=== PATIENT | female | born 1965 | race African-American/Black ===

== ENCOUNTER 2024-03-21 10:52 | Inpatient (IN) | payer MEDICAID ==
[~2024-03-21] VITALS: Ht 403.9 cm; Wt 136.1 kg
[~2024-03-21 10:52] MED LIST: PROC10TA65 PO; TOPUD PO
[2024-03-21 10:53] VITALS: O2SAT 92
[2024-03-21] MEDS: VANCOMYCIN 1G PREMIX 200 ML IV ONE (11:37)
[2024-03-21] MEDS: SODIUM CHLORIDE 0.9% (SEPSIS BOLUS) IV ONE (11:37)
[2024-03-21] MEDS: MORPHINE SULFATE 4 MG/ML INJ (FOR IV/IM USE) IV ONE (11:37)
[2024-03-21 12:06] LABS: CHLORIDE 108 mEq/L (98-107); HEMATOCRIT. 23.5 % (36.0-48.0); HEMOGLOBIN. 7.3 g/dL (12.0-16.0); MEAN CORPUSCULAR HEMOGLOBIN 29.5 pg (28.0-32.0); MEAN CORPUSCULAR HGB CONC 31.2 g/dL (31.0-37.0); MEAN CORPUSCULAR VOLUME 94.5 fL (81.0-99.0); MEAN PLATELET VOLUME 10.4 fl (7.4-10.4); PLATELET 120 x1000/uL (130-400); POTASSIUM 3.6 mEq/L (3.5-5.1); RED BLOOD CELL COUNT 2.49 mill/uL (4.2-5.4); RED CELL DISTRIBUTION WIDTH 20.6 % (11.6-14.6); SODIUM 141 mEq/L (136-145)
[2024-03-21 12:08] LABS: CALCIUM 9.7 mg/dL (8.7-10.4); CARBON DIOXIDE 21 mEq/L (21-32); DIFFERENTIAL COMMENT 1
[2024-03-21 12:12] LABS: INR 1.1
[2024-03-21 12:13] LABS: CREATININE 0.8 mg/dL (0.6-1.0); GLUCOSE 94 mg/dL (70-105); UREA NITROGEN BLOOD 32 mg/dL (9-23)
[2024-03-21 12:15] LABS: ALANINE AMINOTRANSFERASE 85 IU/L (10-49); ALBUMIN 2.7 g/dL (3.2-4.8); ASPARTATE AMINOTRANSFERASE 132 IU/L (<34)
[2024-03-21 12:16] LABS: PROTEIN TOTAL 6.4 g/dL (6.0-8.3)
[2024-03-21 12:35] LABS: LACTIC ACID 5.2 mmol/L (0.4-2.0)
[2024-03-21 12:38] LABS: TROPONIN I HIGH SENSITIVITY 65 ng/L (3.0-34)
[2024-03-21 13:15] LABS: ANISOCYTOSIS 2+; PLATELET ESTIMATE SLIGHTLY DECREASED
[2024-03-21] MEDS: HYDROMORPHONE HCL/PF 2MG/ML INJ IV ONE (13:33)
[2024-03-21] MEDS: MEROPENEM 1G/100ML 100 ML IV SCH (14:51)
[2024-03-21] MEDS: SODIUM CHLORIDE 0.9% 500 ML IV ONE (19:40)
[2024-03-21] MEDS ORDERED: MIDODRINE HCL 5MG TABLET PO SCH (20:30)
[2024-03-21] MEDS: MIDODRINE HCL 5MG TABLET PO SCH (21:02)
[2024-03-21] MEDS: NOREPINEPHRINE 8MG/250ML PMX 250 ML IV PRN (21:54)
[2024-03-21] MEDS: KETOROLAC 15MG/ML VIAL IV PRN (22:52)
[2024-03-21] MEDS: MEROPENEM 1G/100ML IV SCH (22:53)
[2024-03-22] VITALS (82 sets, daily range): BP systolic 76–138; BP diastolic 34–114; PULSE 50–84; RESP 11–23; TEMP 36.33624–37.05852; O2SAT 95–100
[2024-03-22] MEDS: VANCOMYCIN 1.25GM PMX (XELLIA) 250 ML IV NR (00:39)
[2024-03-22] MEDS: MORPHINE SULFATE 2 MG/ML INJ (NOT FOR IM USE) IV PRN (04:05)
[2024-03-22 06:25] LABS: CHLORIDE 107 mEq/L (98-107); SODIUM 139 mEq/L (136-145)
[2024-03-22 06:26] LABS: CARBON DIOXIDE 22 mEq/L (21-32)
[2024-03-22 06:31] LABS: CREATININE 0.8 mg/dL (0.6-1.0); GLUCOSE 94 mg/dL (70-105); UREA NITROGEN BLOOD 35 mg/dL (9-23)
[2024-03-22 07:24] LABS: HEMATOCRIT 21.7 % (36.0-48.0); MEAN CORPUSCULAR HEMOGLOBIN 30.2 pg (28.0-32.0); MEAN CORPUSCULAR VOLUME 94.2 fL (81.0-99.0); PLATELET 102 x1000/uL (130-400); RED BLOOD CELL COUNT 2.31 mill/uL (4.2-5.4); RED CELL DISTRIBUTION WIDTH 20.4 % (11.6-14.6); WHITE BLOOD COUNT 14.6 x1000/uL (4.5-11.0)
[2024-03-22] MEDS ORDERED: HYDROCODONE/ACETAMINOPHEN 10/325MG TABLET PO PRN (09:45)
[2024-03-22] MEDS: PANTOPRAZOLE SODIUM 40 MG/VIAL IV SCH (09:58)
[2024-03-22] MEDS: DEXT 5%/0.45% NACL 1000ML 1,000 ML IV SCH (11:07)
[2024-03-22] MEDS ORDERED: VANCOMYCIN 1GM/200ML PMX (BAXTER) IV SCH (12:00)
[2024-03-22 13:25] LABS: CLARITY URINE CLOUDY (CLEAR); COLOR URINE DARK YELLOW (YELLOW); GLUCOSE URINE NEGATIVE (NEGATIVE); KETONES URINE NEGATIVE (NEGATIVE); LEUKOCYTE ESTERASE URINE 1+ (NEGATIVE); NITRITE URINE POSITIVE (NEGATIVE); OCCULT BLOOD URINE NEGATIVE (NEGATIVE); PH URINE 5.5 (4.5-8.0); PROTEIN URINE 1+ (NEGATIVE); SPECIFIC GRAVITY URINE 1.024 (1.005-1.030)
[2024-03-22 13:54] LABS: BACTERIA URINE 3+; SQUAMOUS EPITHELIAL CELL URINE 1+ /lpf (RARE/1+)
[2024-03-22 13:56] LABS: RBC URINE 0-2 /hpf (0-2); WBC URINE 0-2 /hpf (0-2)
[2024-03-22] MEDS ORDERED: NALOXONE HCL 0.4MG/ML VIAL IV PRN (14:15)
[2024-03-22 16:25] LABS: IRON 52 ug/dL (50-170)
[2024-03-22 16:26] LABS: HEMOGLOBIN 7.8 g/dL (12.0-16.0)
[2024-03-22 16:27] LABS: TOTAL IRON BINDING CAPACITY 329 ug/dl (250-425)
[2024-03-23] VITALS (90 sets, daily range): BP systolic 76–159; BP diastolic 29–95; PULSE 56–97; RESP 11–34; TEMP 36.44736–36.9474; O2SAT 94–100
[2024-03-23 05:12] LABS: CHLORIDE 108 mEq/L (98-107); POTASSIUM 3.8 mEq/L (3.5-5.1); SODIUM 140 mEq/L (136-145)
[2024-03-23 05:13] LABS: CARBON DIOXIDE 24 mEq/L (21-32)
[2024-03-23 05:18] LABS: CREATININE 0.6 mg/dL (0.6-1.0)
[2024-03-23 05:19] LABS: GLUCOSE 122 mg/dL (70-105); UREA NITROGEN BLOOD 30 mg/dL (9-23)
[2024-03-23 05:28] LABS: HEMOGLOBIN. 8.3 g/dL (12.0-16.0); MEAN CORPUSCULAR HEMOGLOBIN 30.7 pg (28.0-32.0); MEAN CORPUSCULAR HGB CONC 33.2 g/dL (31.0-37.0); MEAN CORPUSCULAR VOLUME 92.3 fL (81.0-99.0); MEAN PLATELET VOLUME 10.2 fl (7.4-10.4); PLATELET 83 x1000/uL (130-400); RED CELL DISTRIBUTION WIDTH 19.5 % (11.6-14.6)
[2024-03-23 07:14] LABS: DIFFERENTIAL COMMENT 1
[2024-03-23 10:54] LABS: CHLORIDE 107 mEq/L (98-107); POTASSIUM 3.8 mEq/L (3.5-5.1); SODIUM 138 mEq/L (136-145)
[2024-03-23 10:55] LABS: CALCIUM 8.8 mg/dL (8.7-10.4)
[2024-03-23 10:58] LABS: INR 1.1; PARTIAL THROMBOPLASTIN TIME 31.4 sec (23.4-31.0); PROTHROMBIN TIME 11.9 sec (9.6-11.0)
[2024-03-23 10:59] LABS: CREATININE 0.5 mg/dL (0.6-1.0)
[2024-03-23 11:00] LABS: GLUCOSE 123 mg/dL (70-105); TRIGLYCERIDE 278 mg/dL (0-150); UREA NITROGEN BLOOD 27 mg/dL (9-23)
[2024-03-23 11:01] LABS: LDL CHOLESTEROL 43 mg/dL (5-100)
[2024-03-23 11:02] LABS: ALANINE AMINOTRANSFERASE 98 IU/L (10-49); ALBUMIN 2.5 g/dL (3.2-4.8); ASPARTATE AMINOTRANSFERASE 138 IU/L (<34); BILIRUBIN TOTAL 4.1 mg/dL (0.1-1.0); CHOLESTEROL 134 mg/dL (<200); HDL CHOLESTEROL < 20 mg/dL (>65); PHOSPHORUS 2.4 mg/dL (2.5-4.9); PROTEIN TOTAL 6.3 g/dL (6.0-8.3)
[2024-03-23 11:05] LABS: CARBON DIOXIDE 23 mEq/L (21-32)
[2024-03-23 11:06] LABS: PREALBUMIN < 5.0 mg/dl (10.0-40.0)
[2024-03-23] MEDS: HYDROCODONE/ACETAMINOPHEN 10/325MG TABLET PO PRN (11:49)
[2024-03-23] MEDS: MIDODRINE HCL 5MG TABLET PO SCH (13:23)
[2024-03-23] MEDS: ONDANSETRON HCL 4MG/2ML INJ IV PRN (18:51)
[2024-03-23 20:03] LABS: PLATELET ESTIMATE NORMAL
[2024-03-23] MEDS: TOTAL PARENTERAL NUTRITION 1,800 ML IV SCH (21:41)
[2024-03-23] MEDS: FAT EMULSIONS 500 ML IV SCH (21:42)
[2024-03-24] VITALS (74 sets, daily range): BP systolic 77–130; BP diastolic 44–102; PULSE 65–126; RESP 16–38; TEMP 36.55848–37.16964; O2SAT 91–99
[2024-03-24] MEDS: BLOOD SUGAR DIAGNOSTIC STRIP TEST SCH (00:25)
[2024-03-24 05:47] LABS: ALANINE AMINOTRANSFERASE 105 IU/L (10-49); ALBUMIN 2.6 g/dL (3.2-4.8); ASPARTATE AMINOTRANSFERASE 154 IU/L (<34); BILIRUBIN DIRECT 2.7 mg/dL (<=3.0); BILIRUBIN TOTAL 3.7 mg/dL (0.1-1.0)
[2024-03-24] MEDS ORDERED: ALBUMIN HUMAN 12.5G/250ML (5%) IV NR (18:00)
[2024-03-24 18:24] LABS: BASOPHILS % 0.3 % (0.0-2.0); EOSINOPHILS % 0.9 % (0.0-5.0); HEMATOCRIT. 25.9 % (36.0-48.0); HEMOGLOBIN. 8.5 g/dL (12.0-16.0); LYMPHOCYTES % 8.8 % (20.0-50.0); MEAN CORPUSCULAR HEMOGLOBIN 30.5 pg (28.0-32.0); MEAN CORPUSCULAR HGB CONC 32.6 g/dL (31.0-37.0); MEAN CORPUSCULAR VOLUME 93.4 fL (81.0-99.0); MEAN PLATELET VOLUME 11.4 fl (7.4-10.4); MONOCYTES % 8.3 % (2.0-8.0); NEUTROPHILS % 81.7 % (40.0-76.0); PLATELET 86 x1000/uL (130-400); RED BLOOD CELL COUNT 2.78 mill/uL (4.2-5.4); RED CELL DISTRIBUTION WIDTH 20.3 % (11.6-14.6); WHITE BLOOD COUNT 11.1 x1000/uL (4.5-11.0)
[2024-03-24 18:25] LABS: CHLORIDE 105 mEq/L (98-107); POTASSIUM 3.9 mEq/L (3.5-5.1); SODIUM 135 mEq/L (136-145)
[2024-03-24 18:26] LABS: CALCIUM 9.3 mg/dL (8.7-10.4); CARBON DIOXIDE 21 mEq/L (21-32)
[2024-03-24 18:28] LABS: DIFFERENTIAL COMMENT 1
[2024-03-24 18:30] LABS: ADD RBC MORPHOLOGY YES
[2024-03-24 18:31] LABS: CREATININE 0.5 mg/dL (0.6-1.0); GLUCOSE 151 mg/dL (70-105); UREA NITROGEN BLOOD 18 mg/dL (9-23)
[2024-03-24 18:38] LABS: PLATELET ESTIMATE DECREASED
[2024-03-24 18:39] LABS: ANISOCYTOSIS 2+
[2024-03-24 18:40] LABS: GIANT PLATELETS 1+
[2024-03-24] MEDS: MORPHINE SULFATE 2 MG/ML INJ (NOT FOR IM USE) IV PRN (20:05)
[2024-03-27] MEDS ORDERED: BLOOD SUGAR DIAGNOSTIC STRIP TEST SCH (09:00)
== END 2024-03-24 20:40 | disposition short-term general hospital (02) | DRG 720 ==
LOC: EDBD 12:53 → ER 12:53 → MICUSO 13:19 → EDBEDREQTM 13:28 → EDBEDREQ 13:28 → EDBEDREQSVC 13:28
PROVIDERS: ADMIT Internal Medicine; ATTEND Internal Medicine
PROC: 30233N1 Transfusion of Nonautologous Red Blood Cells into Peripheral Vein, Percutaneous Approach (ICD-10-PCS; principal; 2024-03-22)
DX: A41.59 Other Gram-negative sepsis (principal); J96.01 Acute respiratory failure with hypoxia; R65.21 Severe sepsis with septic shock; G93.41 Metabolic encephalopathy; E43 Unspecified severe protein-calorie malnutrition; K56.699 Other intestinal obstruction unspecified as to partial versus complete obstruction; D69.6 Thrombocytopenia, unspecified; D64.9 Anemia, unspecified; N39.0 Urinary tract infection, site not specified; R74.01 Elevation of levels of liver transaminase levels; C54.1 Malignant neoplasm of endometrium; G35 Multiple sclerosis; E87.20 Acidosis, unspecified; E88.09 Other disorders of plasma-protein metabolism, not elsewhere classified; C78.6 Secondary malignant neoplasm of retroperitoneum and peritoneum; F33.2 Major depressive disorder, recurrent severe without psychotic features; F41.9 Anxiety disorder, unspecified; F43.10 Post-traumatic stress disorder, unspecified; K76.89 Other specified diseases of liver; Z85.42 Personal history of malignant neoplasm of other parts of uterus; Z74.01 Bed confinement status; Z88.0 Allergy status to penicillin; Z90.710 Acquired absence of both cervix and uterus; Z68.1 Body mass index [BMI] 19.9 or less, adult
CPT/HCPCS: 36415; 71045; 74018; 74176; 80048; 80053; 80061; 80076; 80202; 81003; 82248; 82607; 82728; 82746; 82962; 83540; 83550; 83605; 83735; 84100; 84134; 84145; 84484; 85014; 85018; 85025; 85027; 86850; 86900; 86920; 87077; 87186; 93005; 99291; J1171; J1885; J2185; J2270; J2405; J2470; J3370; J3490; J7030; P9016